=== PATIENT | male | born 1995 | race Caucasian/White ===

== ENCOUNTER 2024-05-13 11:17 | Emergency (ER) | payer SELFPAY ==
[2024-05-13] MEDS: Orphenadrine 60 MG/2 ML Inj IM ONE (11:40)
== END 2024-05-13 13:29 | disposition home or self-care (01) ==
LOC: MW.ED 11:17
DX: M62.838 Other muscle spasm (principal)
CPT/HCPCS: 71046; 96372; 99283; J2360

== ENCOUNTER 2025-03-07 15:50 | Emergency (ER) | payer SELFPAY | END 2025-03-07 17:52 | disposition home or self-care (01) | LOC: MW.ED 15:50 | DX: S63.502A Unspecified sprain of left wrist, initial encounter (principal); Z79.899 Other long term (current) drug therapy; W01.0XXA Fall on same level from slipping, tripping and stumbling without subsequent striking against object, initial encounter | CPT/HCPCS: 73110; 99283; A9270 ==